=== PATIENT | female | born 1970 | race Caucasian/White ===

== ENCOUNTER 2016-06-28 22:52 | Emergency (ER) | payer MEDICARE, OTHER ==
[~2016-06-28] VITALS: Ht 165.1 cm; Wt 81.0 kg
[~2016-06-28 22:52] MED LIST: AUGMENTIN500TAB PO; BACTRIM DS1 TAB PO; BACTROBAN2 % EX; LORTAB 5/3255 MG PO; NAPROSYN500 MG PO; NO; NO HOME MEDS; PENICILLN VK500 MG PO; PRILOSEC20 MG OR; ZOFRAN4 MG/TAB PO
[2016-06-29 00:24] VITALS: BP 183/98
[2016-06-29] MEDS ORDERED: PERCOCET 5/325M1 TAB PO (00:43)
[2016-06-29] MEDS ORDERED: AMOXICILLIN500 MG PO (00:43)
== END 2016-06-29 00:48 | disposition home or self-care (01) ==
LOC: ED 22:52
DX: K04.7 Periapical abscess without sinus (principal); K02.9 Dental caries, unspecified; K08.89 Other specified disorders of teeth and supporting structures

== ENCOUNTER 2016-10-18 23:00 | Emergency (ER) | payer MEDICARE, OTHER ==
[~2016-10-18] VITALS: Ht 165.1 cm; Wt 81.0 kg
[~2016-10-18 23:00] MED LIST changes: +AMOXICILLIN500 MG PO; +PERCOCET 5/325M1 TAB PO
[2016-10-18 23:50] VITALS: BP 162/80
[2016-10-18] MEDS ORDERED: PERCOCET 5/325M1 TAB PO (23:59)
[2016-10-18] MEDS ORDERED: AMOXICILLIN500 MG PO (23:59)
== END 2016-10-18 23:50 | disposition home or self-care (01) ==
LOC: ED 23:00
DX: K08.89 Other specified disorders of teeth and supporting structures (principal); K05.10 Chronic gingivitis, plaque induced

== ENCOUNTER 2018-02-08 09:45 | Emergency (ER) | payer MEDICARE, OTHER ==
[~2018-02-08] VITALS: Ht 165.1 cm; Wt 81.6 kg
[2018-02-08 11:15] LABS: INFLUENZA A NONE DETECTED (NONE DETECT); INFLUENZA B NONE DETECTED (NONE DETECT)
[2018-02-08] MEDS ORDERED: CEPHALEXIN500 M1 PO (11:24)
[2018-02-08 11:25] VITALS: BP 140/91
== END 2018-02-08 11:35 | disposition home or self-care (01) ==
LOC: ED 09:45
PROVIDERS: Emergency Medicine
DX: J02.9 Acute pharyngitis, unspecified (principal); R05 Cough; R51 Headache

== ENCOUNTER 2020-05-09 10:39 | Emergency (ER) | payer MEDICARE, MEDICAID ==
[~2020-05-09] VITALS: Ht 165.1 cm; Wt 65.0 kg
[~2020-05-09 10:39] MED LIST changes: +CEPHALEXIN500 M1 PO
[2020-05-09 11:17] LABS: HEMATOCRIT 47.9 % (37.0-47.0); HEMOGLOBIN 15.5 g/dl (12.0-16.0); IMMATURE GRANULOCYTES 0.1 % (0.0-5.0); MEAN CELL VOLUME 92.1 fL CALC (80.0-100.0); MEAN CORPUSCULAR HGB 29.8 pG CALC (26.0-32.0); MEAN CORPUSCULAR HGB CONC 32.4 g/dL CAL (32.0-36.0); NEUT# 4.67 thou/uL (2.00-7.15); RED BLOOD COUNT 5.2 mill/uL (4.20-5.60); RED CELL DISTRI WIDTH 14.4 % (11.5-15.5)
[2020-05-09 11:33] LABS: ALBUMIN 4.8 g/dL (3.2-5.0); ALKALINE PHOSPHATASE 102 u/l (38-126); ANION GAP 12 (6-22 (CALC)); BILIRUBIN, TOTAL 0.5 mg/dL (0.0-1.4); BUN 12 mg/dL (7-17); BUN/CREATININE RATIO 16 (12-20 (CALC)); CARBON DIOXIDE 27 mmol/l (22-30); CHLORIDE 103 mmol/l (95-108); CREATININE 0.7 mg/dL (0.5-1.0); GFR > 60 ML/MIN (>=60 (CALC)); GFR FOR AFR.AMER. > 60 ML/MIN (>=60 (CALC)); POTASSIUM 3.9 mmol/l (3.5-5.1); SGOT/AST 25 u/l (14-36); SODIUM 139 mmol/l (137-146); TOTAL PROTEIN 8.6 g/dL (6.3-8.2)
[2020-05-09 11:36] LABS: ACT PARTIAL THROMBO TIME 25.9 SECONDS (20.0-32.5); PROTHROMBIN TIME 9.5 SECONDS (9.0-12.5)
[2020-05-09 12:30] VITALS: BP 136/71
== END 2020-05-09 12:30 | disposition home or self-care (01) ==
LOC: ED 10:39
PROVIDERS: Student in an Organized Health Care Education/Training Program
DX: R20.2 Paresthesia of skin (principal); R03.0 Elevated blood-pressure reading, without diagnosis of hypertension; R00.0 Tachycardia, unspecified; F17.210 Nicotine dependence, cigarettes, uncomplicated

== ENCOUNTER 2023-11-05 14:34 | Emergency (ER) | payer OTHER ==
[~2023-11-05] VITALS: Ht 165.1 cm; Wt 89.3 kg
[2023-11-05 15:02] VITALS: BP 197/93
[2023-11-05 15:03] VITALS: BP 197/106
[2023-11-05] MEDS ORDERED: CLINDAMYCIN HY300 MG PO (15:14)
[2023-11-05 15:15] VITALS: BP 148/92
[2023-11-05 15:30] VITALS: BP 156/88
[2023-11-05 15:45] VITALS: BP 164/84
[2023-11-05 15:54] VITALS: BP 161/82
== END 2023-11-05 15:55 | disposition home or self-care (01) | DRG 603 ==
LOC: ED 14:34
DX: L02.11 Cutaneous abscess of neck (principal); B95.62 Methicillin resistant Staphylococcus aureus infection as the cause of diseases classified elsewhere

== ENCOUNTER 2024-03-21 11:27 | Emergency (ER) | payer OTHER ==
[~2024-03-21] VITALS: Ht 165.1 cm; Wt 81.6 kg
[~2024-03-21 11:27] MED LIST changes: +CLINDAMYCIN HY300 MG PO
[2024-03-21] MEDS ORDERED: BACTRIM DS1 TAB PO ×2 (13:55→13:59)
[2024-03-21] MEDS ORDERED: SULFAMETHOXAZOLE W/TRIMETHOPRI 1 COMBO TAB PO ONE (13:55)
[2024-03-21 14:09] VITALS: BP 160/87
== END 2024-03-21 14:15 | disposition home or self-care (01) ==
LOC: ED 11:27
DX: L03.115 Cellulitis of right lower limb (principal); I10 Essential (primary) hypertension; Z72.0 Tobacco use